=== PATIENT | female | born 1985 | race Caucasian/White ===

== ENCOUNTER 2020-02-17 09:59 | Emergency (ER) | payer BC, OTHER ==
[~2020-02-17] VITALS: Ht 160 cm; Wt 111.1 kg
[~2020-02-17 09:59] MED LIST: ALBU-136 IH; ATI.5 PO; HYDR-2849 PO; METH250T32 PO
[2020-02-17 10:01] VITALS: BP 108/83
--- NOTE | 2020-02-17 10:15 | NUR ---
ERMD EVALUATING PT
--- NOTE | 2020-02-17 10:20 | NUR ---
C/O SORE THROAT/SWOLLEN TONSILS X 3 DAYS, SLIGHT COUGH. LUNGS CLEAR, RR EVEN AND UNLABORED. AIRWAY INTACT. PT STATES SHE HAS BEEN TAKING MOTRIN PRN FOR PAIN RELIEF. PAIN CONTINUES TO RETURN. PAIN 10/10 TO TONSILLS PER PT VS STABLE. PT ALERT AND AWAKE. AMBULATORY WITH STEADY GAIT. PMH- ASTHMA, CARDIOMEGALY
--- NOTE | 2020-02-17 10:39 | NUR ---
STREP SWAB COLLECTED
[2020-02-17 12:40] VITALS: BP 108/83
--- NOTE | 2020-02-17 12:42 | NUR ---
Patient discharged with v/s stable. Written and verbal after care instructions given and explained. Patient alert, oriented and verbalized understanding of instructions. Ambulatory with steady gait. All questions addressed prior to discharge. ID band removed. Patient advised to follow up with PMD. Rx of PROMETHAZINE/DEXTROMETHMORPHAN & AZITHROMYCIN given. Patient educated on indication of medication including possible reaction and side effects. Opportunity to ask questions provided and answered.
== END 2020-02-17 12:42 | disposition home or self-care (01) ==
LOC: MED 09:59
DX: J02.8 Acute pharyngitis due to other specified organisms (principal); B96.89 Other specified bacterial agents as the cause of diseases classified elsewhere; J45.909 Unspecified asthma, uncomplicated; I10 Essential (primary) hypertension; Z79.899 Other long term (current) drug therapy; Z88.0 Allergy status to penicillin
CPT/HCPCS: 87081; 99283

== ENCOUNTER 2021-05-24 09:29 | Emergency (ER) | payer BC, OTHER ==
[~2021-05-24] VITALS: Ht 157.5 cm; Wt 90.7 kg
[~2021-05-24 09:29] MED LIST changes: +ALBU-118 IH; -ALBU-136 IH
[2021-05-24 10:02] VITALS: BP 140/87
--- NOTE | 2021-05-24 10:06 | NUR ---
TENT 1
--- NOTE | 2021-05-24 10:10 | NUR ---
BIB SELF C/O COUGH X 2 DAYS, STUFFY NOSE X 1 WEEK. PMH: HTN, LARGE HEART, ANXIETY
[2021-05-24] MEDS ORDERED: GUAI-646 PO (10:55)
[2021-05-24] MEDS ORDERED: IBUP-2213 PO (10:56)
[2021-05-24] MEDS ORDERED: BENZ-196 PO (10:57)
[2021-05-24 11:20] VITALS: BP 140/87
--- NOTE | 2021-05-24 11:20 | NUR ---
Patient discharged with v/s stable. Written and verbal after care instructions ABOUT COUGH AND VIRAL ILLNESS given and explained. Patient alert, oriented and verbalized understanding of instructions. Ambulatory with steady gait. All questions addressed prior to discharge. ID band removed. Patient advised to follow up with PMD. Rx of TESKASHMIR PERLE AND MUCINEX given. Patient educated on indication of medication including possible reaction and side effects. Opportunity to ask questions provided and answered.
--- NOTE | 2021-05-24 11:20 | NUR ---
NO NURSING INTERVENTIONS PROVIDED
== END 2021-05-24 11:20 | disposition home or self-care (01) ==
LOC: MED 09:29
DX: B34.9 Viral infection, unspecified (principal); J45.909 Unspecified asthma, uncomplicated; I10 Essential (primary) hypertension; F17.200 Nicotine dependence, unspecified, uncomplicated; Z71.6 Tobacco abuse counseling; Z79.899 Other long term (current) drug therapy; Z79.1 Long term (current) use of non-steroidal anti-inflammatories (NSAID); Z79.51 Long term (current) use of inhaled steroids; Z88.0 Allergy status to penicillin
CPT/HCPCS: 99283